=== PATIENT | female | born 1990 | race African-American/Black ===

== ENCOUNTER 2016-06-24 13:56 | Emergency (ER) | payer OTHER ==
[~2016-06-24] VITALS: Ht 165.1 cm; Wt 89.5 kg
[2016-06-24] MEDS ORDERED: LIDOCAINE HCL BUFFERED 1% 20 ML VIAL INJ ONE (16:30)
[2016-06-24] MEDS ORDERED: POVIDONE-IODINE 10% 15 ML SOLUTION UD TP ONE (16:45)
[2016-06-24 18:12] VITALS: BP 127/69
== END 2016-06-24 18:15 | disposition home or self-care (01) ==
LOC: EMS 13:59
DX: N61.1 Abscess of the breast and nipple (principal); F17.210 Nicotine dependence, cigarettes, uncomplicated
CPT/HCPCS: 10060; 99283; J3490